=== PATIENT | male | born 1950 | race Caucasian/White ===

== ENCOUNTER → 2016-11-30 | Outpatient (CLI) | payer MEDICARE, OTHER ==
[~2016-11-30] MED LIST: ALB/IPRATROPIUM/1 E1 INH; AMOXICILLIN500 M1 PO; ATENOLOL50 MG PO; COMBIVENT14.7 GM INH; LIPITOR40 MG PO; NITROQUICK0.3 MG SL; PEN-VEE K PO; PLAVIX PO; PREDNISONE PO; ROBITUSSIN A-C S5 ML PO; TRAMADOL HCL50 M2 PO
[2016-11-30 08:55] LABS: MICRO INDICATED? NO; URINE APPEARANCE CLEAR; URINE BILIRUBIN NEG (NEG); URINE BLOOD NEG (NEG); URINE COLOR YELLOW; URINE GLUCOSE NEG (NORM); URINE KETONE NEG (NEG); URINE LEUKOCYTE ESTERASE NEG (NEG); URINE NITRATE NEG (NEG); URINE PH 5.5 (5-8); URINE PROTEIN NEG (NEG); URINE SPECIFIC GRAVITY >=1.030 (1.003-1.035); URINE UROBILINOGEN 0.2 MG/DL (NORM)
== END | disposition home or self-care (01) ==
LOC: SLAB 08:39
PROVIDERS: Internal Medicine
DX: E55.9 Vitamin D deficiency, unspecified (principal); R73.9 Hyperglycemia, unspecified
CPT/HCPCS: 36415; 81003; 82306; 83036

== ENCOUNTER → 2016-12-08 | Outpatient (CLI) | payer MEDICARE, OTHER ==
--- NOTE | ~2016-12-08 | CR150 ---
[facility] A Service of [facility] RADIOLOGY TEXT RESULTS PATIENT: ROEL ARTEAGA LOCATION: [facility] : 48 UNIT #: [id number] AGE: [address]: Savanna Farias MD SEX: M ORDER DR: [id number] [address] [address] [id number] O MR#: [id number] Acc #: [id number] NAME: ROEL ARTEAGA : 1950 SEX: M STUDY DATE/TIME: 12/08/2016 12:38 UNIT: [facility] ROOM: STUDY DESCRIPTION: CR Hip Min 2 Views Lt Attending Physician: Savanna Farias M.D. Referring Physician: Savanna Farias M.D. Ordering Physician: Savanna Farias M.D. Primary Care Physician: Savanna Farias M.D. MEDICAL IMAGING REPORT This report is preliminary unless electronic signature is present. EXAM Left hip 2 views 12/08/2016 INDICATIONS 66-year-old male with pain in the left hip because of a fall, "something gives out." Lower extremity numbness and tingling on the left and back pain. 2 views of the left hip. COMPARISON STUDIES No comparisons. FINDINGS At least moderate degenerative changes are present at both hips related to joint space narrowing and osteophytosis. This is slightly worse on the left than the right. No acute fracture. There is subchondral sclerosis and cyst formation on both sides of the left hip joint greater on the acetabular side. There is degenerative change of the SI joints right greater than left. Degenerative change in the visualized lower lumbar spine. Probable vascular calcifications in the pelvis. IMPRESSION 1. Moderate degenerative change of the hips left slightly greater than right but no acute fracture. 2. Degenerative change of the SI joints right greater than left and lower lumbar levels. 1. Dictated by... Sachin Bean M.D. THIS IS AN ELECTRONICALLY VERIFIED REPORT [facility] A Service [facility] RADIOLOGY TEXT RESULTS PATIENT: ROEL ARTEAGA LOCATION: [facility] : 48 UNIT #: [id number] AGE: [address]: Savanna Farias MD SEX: M ORDER DR: Sachin Bean M.D. at 12/10/2016 8:04 AM Pham TD: 12/08/2016 18:19 JOB #: [id number] MEDICAL IMAGING REPORT
--- NOTE | ~2016-12-08 | US10 ---
[id number] [address] [address] [id number] O MR#: [id number] Acc #: [id number] NAME: ROEL ARTEAGA : 1950 SEX: M STUDY DATE/TIME: 12/08/2016 13:01 UNIT: [facility] ROOM: STUDY DESCRIPTION: US Aorta Complete Attending Physician: Savanna Farias M.D. Referring Physician: Savanna Farias M.D. Ordering Physician: Savanna Farias M.D. Primary Care Physician: Savanna Farias M.D. MEDICAL IMAGING REPORT This report is preliminary unless electronic signature is present. EXAM Aortic ultrasound INDICATIONS Aortic aneurysm. This is identified on a MRI of the lumbar spine which was performed on September 02, 2015. TECHNIQUE Shultz-scale color Doppler and spectral Doppler waveform analysis was performed through the patient's aorta. FINDINGS Proximal aorta measures 2.0 x 2.7 cm. Mid abdominal aorta measures up to 4.4 x 3.6 cm. Patient does appear to have some plaque within the aorta. Previously the aorta measured about 3.9 cm on the MRI of the lumbar spine. Discrepancy may be related to differences in technique, however the distal abdominal aorta measures up to 3.3 x 2.7 cm. Iliac vessels measure within normal size limits. On today's study although they did appear to be dilated on the prior study from August of 2015 when the right common iliac measured up to 2.5 cm. IMPRESSION 1. Aneurysmal dilatation of the infrarenal abdominal aorta mid abdominal aorta measures up to 4.4 x 3.6 cm. This is larger than on the prior MRI when it was measured at 3.9 cm. I am uncertain if this is a true increase in size or simply reflects differences in technique. Certainly CT angiography of the abdomen and pelvis would be much more sensitive for full evaluation of the aorta. Patient is noted have some atherosclerotic plaque within the aorta, there is also aneurysmal dilatation of the distal abdominal aorta measuring up to 3.3 x 2.7 cm. 2. While the iliac arteries measure within normal size limits on the current study on prior MRI they did show aneurysmal dilatation, particularly the right common iliac artery measured up to 2.5 cm, again, I would suggest further evaluation with CT angiography of the abdomen and pelvis Dictated by... Glenna rL M.D. THIS IS AN ELECTRONICALLY VERIFIED REPORT Glenna Lr M.D. at 12/14/2016 1:16 PM AFF/rntricia TD: 12/09/2016 01:19 JOB #: [id number] MEDICAL IMAGING REPORT
== END | disposition home or self-care (01) ==
LOC: SGUS 12:11
DX: Z13.6 Encounter for screening for cardiovascular disorders (principal); M25.552 Pain in left hip; R26.2 Difficulty in walking, not elsewhere classified; I71.4 Abdominal aortic aneurysm, without rupture; M47.816 Spondylosis without myelopathy or radiculopathy, lumbar region; M47.818 Spondylosis without myelopathy or radiculopathy, sacral and sacrococcygeal region
CPT/HCPCS: 73502; 76770